=== PATIENT | female | born 1985 | race Caucasian/White ===

== ENCOUNTER → 2025-04-07 10:41 | Outpatient (CLI) | payer OTHER, SELFPAY ==
[2025-04-07 12:25] LABS: HCG Quantitative /Beta subunit 137.91 mIU/mL
[2025-04-07 17:29] LABS: Progesterone, Total 7.09 ng/mL
== END ==
PROVIDERS: PCP Family Medicine; Referring Provider Obstetrics & Gynecology; Visit Provider Obstetrics & Gynecology
DX: O09.299 Supervision of pregnancy with other poor reproductive or obstetric history, unspecified trimester (principal)
CPT/HCPCS: 36415; 84144; 84702

== ENCOUNTER → 2025-04-09 09:36 | Outpatient (CLI) | payer OTHER, SELFPAY ==
[2025-04-09 11:15] LABS: HCG Quantitative /Beta subunit 396.34 mIU/mL
== END ==
PROVIDERS: PCP Family Medicine; Referring Provider Obstetrics & Gynecology; Visit Provider Obstetrics & Gynecology
DX: O09.299 Supervision of pregnancy with other poor reproductive or obstetric history, unspecified trimester (principal)
CPT/HCPCS: 36415; 84702

== ENCOUNTER → 2025-04-13 09:49 | Outpatient (CLI) | payer OTHER, SELFPAY ==
[2025-04-13 11:55] LABS: Progesterone, Total 17.00 ng/mL
== END ==
PROVIDERS: PCP Family Medicine; Referring Provider Obstetrics & Gynecology; Visit Provider Obstetrics & Gynecology
DX: O09.299 Supervision of pregnancy with other poor reproductive or obstetric history, unspecified trimester (principal)
CPT/HCPCS: 36415; 84144

== ENCOUNTER → 2025-04-16 09:32 | Outpatient (CLI) | payer OTHER, SELFPAY ==
[2025-04-16 11:44] LABS: HCG Quantitative /Beta subunit 6724.5 mIU/mL
== END ==
PROVIDERS: Obstetrics & Gynecology; PCP Family Medicine; Referring Provider Obstetrics & Gynecology; Visit Provider Obstetrics & Gynecology
DX: O09.299 Supervision of pregnancy with other poor reproductive or obstetric history, unspecified trimester (principal)
CPT/HCPCS: 36415; 84702

== ENCOUNTER → 2025-05-04 15:07 | Outpatient (CLI) | payer OTHER, SELFPAY ==
[2025-05-04 20:01] LABS: Urine N gonorrhoeae NOT DETECTED
[2025-05-04 20:03] LABS: Urine Chlamydia NOT DETECTED
== END ==
PROVIDERS: PCP Family Medicine; Visit Provider Obstetrics & Gynecology
DX: Z11.3 Encounter for screening for infections with a predominantly sexual mode of transmission (principal)
CPT/HCPCS: 87491; 87591

== ENCOUNTER → 2025-05-15 09:40 | Outpatient (CLI) | payer OTHER, SELFPAY ==
[2025-05-15 10:29] LABS: Add Manual Diff / Slide Review NO; Hematocrit 33.5 % (36-46); Hemoglobin 11.2 g/dL (12.0-16.0); Lymphocytes Absolute Auto 1700 /uL (1100-4500); Mean Corpuscular HGB Conc 33.3 % (30-36); Mean Corpuscular Hemoglobin 27.7 PG (26-34); Mean Corpuscular Volume 83.4 fL (80-100); Platelet Count 264 X10^3/uL (150-400)
[2025-05-15 10:37] LABS: Hemoglobin A1C% w Est Avg Glu 4.8 % (4.0-6.0)
[2025-05-15 10:47] LABS: Natera Collection Specimen Collected
[2025-05-15 10:49] LABS: HEMOLYSIS < 15 (0-50); Iron 82 ug/dL (37-170)
[2025-05-15 11:02] LABS: Percent Iron Saturation 17 % (15-50); Total Iron Binding Capacity 477 ug/dL (265-497); Transferrin 418 mg/dL (206-381)
[2025-05-15 11:25] LABS: Ferritin 31 ng/mL (6-137)
[2025-05-15 11:26] LABS: Hepatitis B Surface Antigen NEGATIVE s/c (NEGATIVE)
[2025-05-15 11:40] LABS: HIV 1 & 2 Ab/Ag 4th Gen Combo NEGATIVE (NEGATIVE)
[2025-05-16 18:04] LABS: Hep C Virus Ab w/Reflex Quant NEGATIVE s/c (NEGATIVE)
== END ==
PROVIDERS: PCP Family Medicine; Referring Provider Obstetrics & Gynecology; Visit Provider Obstetrics & Gynecology
DX: O09.511 Supervision of elderly primigravida, first trimester (principal); O09.899 Supervision of other high risk pregnancies, unspecified trimester; O99.210 Obesity complicating pregnancy, unspecified trimester; Z36.0 Encounter for antenatal screening for chromosomal anomalies
CPT/HCPCS: 36415; 80055; 82728; 83036; 83540; 83550; 86787; 86803; 86850; 86900; 86901; 87389

== ENCOUNTER → 2025-06-01 15:36 | Outpatient (CLI) | payer OTHER, SELFPAY | PROVIDERS: PCP Family Medicine; Visit Provider Obstetrics & Gynecology | DX: O09.899 Supervision of other high risk pregnancies, unspecified trimester (principal); O99.210 Obesity complicating pregnancy, unspecified trimester | CPT/HCPCS: 87086 ==

== ENCOUNTER → 2025-06-10 09:44 | Outpatient (CLI) | payer OTHER, SELFPAY ==
[2025-06-10 10:51] LABS: Natera Collection Specimen Collected
== END ==
PROVIDERS: PCP Family Medicine; Referring Provider Obstetrics & Gynecology; Visit Provider Obstetrics & Gynecology
DX: O09.512 Supervision of elderly primigravida, second trimester (principal); Z36.0 Encounter for antenatal screening for chromosomal anomalies
CPT/HCPCS: 36415

== ENCOUNTER → 2025-06-29 16:17 | Outpatient (CLI) | payer OTHER, SELFPAY | PROVIDERS: PCP Family Medicine; Referring Provider Obstetrics & Gynecology; Visit Provider Obstetrics & Gynecology | DX: Z36.0 Encounter for antenatal screening for chromosomal anomalies (principal) | CPT/HCPCS: 36415; 82105 ==